=== PATIENT | female | born 1965 | race Caucasian/White ===

== ENCOUNTER 2024-12-24 20:25 | Emergency (ER) | payer OTHER | END 2024-12-24 20:50 | disposition home or self-care (01) | LOC: VM.ED 20:25 | DX: S61.310A Laceration without foreign body of right index finger with damage to nail, initial encounter (principal); W23.0XXA Caught, crushed, jammed, or pinched between moving objects, initial encounter | CPT/HCPCS: 11760; 99283; 99283-25 ==